=== PATIENT | male | born 1980 | race American Indian/Alaskan Native ===

== ENCOUNTER 2019-09-03 07:14 | Observation (INO) | payer SELFPAY ==
--- NOTE | 2019-09-03 08:16 | XRay Report ---
CHEST 2 VIEWS INDICATION / CLINICAL INFORMATION: MYCHAL ESRD. COMPARISON: None available. FINDINGS: SUPPORT DEVICES: None. HEART / MEDIASTINUM: No significant abnormality. LUNGS / PLEURA: No significant pulmonary or pleural abnormality. .No pneumothorax. ADDITIONAL FINDINGS: No significant additional findings. IMPRESSION: 1. No acute findings. Signer Name: Cruzito Hills MD Signed: 09/03/2019 8:12 AM Workstation Name: [id number]
--- NOTE | 2019-09-03 08:30 | Emergency Department Report ---
ED General Adult HPI - General Chief complaint: Medical Clearance Stated complaint: DIALYSIS Time Seen by Provider: 09/03/19 07:38 Source: patient Mode of arrival: Ambulatory Limitations: No Limitations - History of Present Illness Initial comments: This is a 39 y/o ESRD pt on dialysis with a left arm fistula. He states that he moved here on . He has been dialyzed through the ER at [facility] since then. He states his last dialysis was on Thursday. Thursday he went to [facility] and had a "disagreement" and was not dialyzed. She is here today requesting dialysis. He states that his insurance was "not accepted". He is applied for [facility] [place] Medicaid which is pending. Due to this he has no outpatient dialysis scheduled. He states he does not have a command center officer either. He has been seeing the on-call physician at [facility]. Patient states he feels like he is filling up with fluid. However we does not report any breathing difficulty. He states that his legs never gets swollen. He states he has a history of congestive heart failure and hypertension but no diabetes. He denies fever or chills. -: Gradual Associated Symptoms: denies other symptoms - Related Data Allergies Allergy/AdvReac Type Severity Reaction Status Date / Time shellfish derived Allergy Unknown Verified 09/03/19 07:40 ED Review of Systems ROS: Stated complaint: DIALYSIS Other details as noted in HPI Constitutional: other (feels like he is "filling up with fluid".). denies: chills, fever Eyes: denies: eye pain, eye discharge, vision change ENT: denies: ear pain, throat pain Respiratory: denies: cough, shortness of breath, wheezing Cardiovascular: denies: chest pain, palpitations Endocrine: no symptoms reported Gastrointestinal: denies: abdominal pain, nausea, diarrhea Genitourinary: denies: urgency, dysuria Musculoskeletal: denies: back pain, joint swelling, arthralgia Skin: denies: rash, lesions Neurological: denies: headache, weakness, paresthesias Psychiatric: denies: anxiety, depression Hematological/Lymphatic: denies: easy bleeding, easy bruising ED Past Medical Hx - Past Medical History Previous Medical History?: Yes Hx Hypertension: Yes Hx Renal Disease: Yes - Surgical History Past Surgical History?: Yes Additional Surgical History: AV graft - Social History Smoking Status: Never Smoker ED Physical Exam - General Limitations: No Limitations General appearance: alert, in no apparent distress - Head Head exam: Present: atraumatic, normocephalic - Eye Eye exam: Present: normal appearance. Absent: scleral icterus - ENT ENT exam: Present: mucous membranes moist - Neck Neck exam: Present: normal inspection - Respiratory Respiratory exam: Present: normal lung sounds bilaterally. Absent: respiratory distress - Cardiovascular Cardiovascular Exam: Present: regular rate, normal rhythm. Absent: systolic murmur, diastolic murmur, rubs, gallop - GI/Abdominal GI/Abdominal exam: Present: soft, normal bowel sounds. Absent: distended, tenderness, guarding, rebound - Rectal Rectal exam: Present: deferred - Extremities Exam Extremities exam: Present: other (fistula with good thrill noted left arm) - Back Exam Back exam: Present: normal inspection - Neurological Exam Neurological exam: Present: alert, oriented X3, CN II-XII intact. Absent: motor sensory deficit - Psychiatric Psychiatric exam: Present: normal affect, normal mood - Skin Skin exam: Present: warm, dry, intact, normal color. Absent: rash ED Course Vital Signs 09/03/19 09/03/19 09/03/19 07:34 07:37 08:10 Temperature 98.2 F 98.6 F Pulse Rate 84 86 88 Respiratory 18 18 12 Rate Blood Pressure 126/75 126/75 O2 Sat by Pulse 98 98 Oximetry 09/03/19 09/03/19 09/03/19 08:14 08:15 08:30 Temperature Pulse Rate 80 80 Respiratory 18 11 L 12 Rate Blood Pressure 135/79 135/79 O2 Sat by Pulse 99 100 99 Oximetry 09/03/19 09/03/19 08:45 09:00 Temperature Pulse Rate 80 92 H Respiratory 12 12 Rate Blood Pressure 127/74 127/74 O2 Sat by Pulse 100 100 Oximetry - Reevaluation(s) Reevaluation #1: Discussed the case with Dr. Boland, the command center officer. He stated that he was familiar with this patient. He will enter dialysis orders. 09/03/19 09:54 ED Medical Decision Making - Lab Data Result diagrams: 09/03/19 08:11 09/03/19 08:11 Laboratory Results - last 24 hr 01/25/20 01/25/20 01/25/20 08:11 08:11 08:11 WBC 3.2 L RBC 2.94 L Hgb 8.7 L Hct 26.1 L MCV 89 MCH 30 MCHC 33 RDW 15.9 H Plt Count 154 Lymph % (Auto) 38.5 H [place] % (Auto) 8.2 H Eos % (Auto) 3.0 Baso % (Auto) 1.2 Lymph # 1.2 [place] # 0.3 Eos # 0.1 Baso # 0.0 Seg Neutrophils % 49.1 Seg Neutrophils # 1.6 L PT 13.6 INR 1.03 APTT 31.5 Sodium 142 Potassium 4.3 Chloride 100.4 Carbon Dioxide 17 L Anion Gap 29 BUN 86 H Creatinine 17.1 H Estimated GFR 3 BUN/Creatinine Ratio 5 Glucose 116 H Calcium 7.8 L Phosphorus 6.70 H Total Bilirubin 0.30 Direct Bilirubin < 0.2 Indirect Bilirubin 0.1 AST 13 ALT 8 Alkaline Phosphatase 83 NT-Pro-B Natriuret Pep 833.8 H Total Protein 7.5 Albumin 4.4 Albumin/Globulin Ratio 1.4 - Radiology Data Radiology results: report reviewed (chest x-ray no acute process) Critical care attestation.: If time is entered above; I have spent that time in minutes in the direct care of this critically ill patient, excluding procedure time. ED Disposition Clinical Impression: End stage renal disease on dialysis Cardiomyopathy Qualifiers: Cardiomyopathy type: unspecified Qualified Code(s): I42.9 - Cardiomyopathy, unspecified Disposition: OP ADMIT IP TO THIS HOSP Is pt being admited?: Yes Does the pt Need Aspirin: Yes Condition: Stable Time of Disposition: 10:02
[2019-09-03 08:42] LABS: Basophils % (Auto) 1.2 % (0.0-1.8); Eosinophils # (Auto) 0.1 K/mm3 (0.0-0.4); Hematocrit 26.1 % (35.5-45.6); Hemoglobin 8.7 gm/dl (11.8-15.2); Lymphocytes # (Auto) 1.2 K/mm3 (1.2-5.4); Lymphocytes % (Auto) 38.5 % (13.4-35.0); Mean Corpuscular HGB Conc 33 % (32-34); Mean Corpuscular Volume 89 fl (84-94); Monocytes # (Auto) 0.3 K/mm3 (0.0-0.8); Monocytes % (Auto) 8.2 % (0.0-7.3); Platelet Count 154 K/mm3 (140-440); Red Blood Count 2.94 M/mm3 (3.65-5.03); Red Cell Distribution Width 15.9 % (13.2-15.2)
[2019-09-03 08:47] LABS: INR 1.03 (0.87-1.13)
[2019-09-03 08:48] LABS: Partial Thromboplastin Time 31.5 Sec. (24.2-36.6)
[2019-09-03 09:16] LABS: Alanine Aminotransferase 8 units/L (7-56); Albumin 4.4 g/dL (3.9-5); BUN/Creatinine Ratio 5; Blood Urea Nitrogen 86 mg/dL (9-20); Calcium 7.8 mg/dL (8.4-10.2); Hemolysis Index 6
[2019-09-03 09:19] LABS: Bilirubin,Direct < 0.2 mg/dL (0-0.2)
[2019-09-03] MEDS ORDERED: ASPIRIN 325 MG TAB PO ONE (10:02)
[2019-09-03] MEDS ORDERED: SODIUM CHLORIDE 0.9% 100 ML IV PRN (12:23)
--- NOTE | 2019-09-03 12:30 | Consultation ---
History of Present Illness - Reason for Consult Consult date: 09/03/19 end stage renal disease - History of Present Illness This is a 39 y/o M with PMH of ESRD on HD and HTN who presented to [facility] ED with c/o shortness of breath needing HD. Pt states he moved to [place], doesn't have outpatient HD placement yet, states awaiting finalization of insurance coverage. Pt states he has been going to different hospitals for HD. Last HD treatment was 08/29/19 at [facility], had about 3.5 liter removed. Pt states he went to [facility] on Thursday, but had a long wait time and never received HD. We joel andrade consulted to evaluate this pt who has ESRD. Pt seen in ED, no acute distress, family at bedside Past History Past Medical History: dialysis, ESRD, hypertension Medications and Allergies Allergies Allergy/AdvReac Type Severity Reaction Status Date / Time shellfish derived Allergy Unknown Verified 09/03/19 07:40 Active Meds: Active Medications Sodium Chloride (Nacl 0.9%) 100 mls @ 999 mls/hr IV LUCIUS PRN PRN Reason: Hypotension Review of Systems Constitutional: fatigue, no fever Cardiovascular: shortness of breath, dyspnea on exertion, no chest pain Respiratory: shortness of breath, dyspnea on exertion Gastrointestinal: no abdominal pain, no nausea, no vomiting, no diarrhea, no constipation, no hematemesis, no melena Neurological: no syncope Exam - Vital Signs Vital signs: Vital Signs Temp Pulse Resp BP Pulse Ox 98.2 F 84 18 126/75 98 09/03/19 07:34 09/03/19 07:34 09/03/19 07:34 09/03/19 07:34 09/03/19 07:34 - General Appearance General appearance: well-developed EENT: ATNC Neck: Present: neck supple Respiratory: Decreased Breath Sounds Heart: regular, S1S2, other (ACCESS: Left AVF + thrill and bruit noted) Gastrointestinal: Present: normoactive bowel sounds. Absent: tenderness Integumentary: warm and dry Neurologic: alert and oriented x3 Musculoskeletal: Present: other (trace edema to BLE) Psychiatric: cooperative Results - Lab Results 09/03/19 08:11 09/03/19 08:11 Most recent lab results Calcium 7.8 mg/dL (8.4-10.2) L 09/03/19 08:11 Phosphorus 6.70 mg/dL (2.5-4.5) H 09/03/19 08:11 Assessment and Plan ESRD on HD HTN Shortness of breath Anemia likely due to ESRD High Anion Gap Metabolic Acidosis Plan: - HD today for UF and clearance - Ok for pt to be discharged home from nephrology standpoint after HD if remains medically stable - Pt states he's been on HD for about 1 yr, Left AVF + thrill and bruit - Renally dose medications - Epogen dosing for anemia management - Pt doesn't have outpatient HD placement yet, awaiting insurance coverage, states he goes to the ED for dialysis - Renal plan d/w Dr Boland
--- NOTE | 2019-09-03 12:38 | History and Physical Report ---
History of Present Illness Date of examination: 09/03/19 Date of admission: 09/03/19 10:24 History of present illness: This is a 39 y/o ESRD pt on dialysis with a left arm fistula. He states that he moved here on . He has been dialyzed through the ER at [facility] since then. He states his last dialysis was on Thursday. Thursday he went to [facility] and had a "disagreement" and was not dialyzed. She is here today requesting dialysis. He states that his insurance was "not accepted". He is applied for [facility] Medicaid which is pending. Due to this he has no outpatient dialysis scheduled. 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 He has been seeing the on-call physician at [facility]. Patient states he feels like he is filling up with fluid. However we does not report any breathing difficulty. He states that his legs never gets swollen. He states he has a history of congestive heart failure and hypertension but no diabetes. He denies fever or chills. Past History Past Medical History: dialysis, ESRD, hypertension Medications and Allergies Allergies Allergy/AdvReac Type Severity Reaction Status Date / Time shellfish derived Allergy Unknown Verified 09/03/19 07:40 Active Meds: Active Medications Epoetin Bernardo (Procrit) 10,000 unit SUB-Q LUCIUS LEONEL Sodium Chloride (Nacl 0.9%) 100 mls @ 999 mls/hr IV LUCIUS PRN PRN Reason: Hypotension Exam - Constitutional Vitals: Temp Pulse Resp BP Pulse Ox 98.6 F 92 H 12 127/74 100 09/03/19 07:37 09/03/19 09:00 09/03/19 09:00 09/03/19 09:00 09/03/19 09:00 Results - Labs CBC & Chem 7: 09/03/19 08:11 09/03/19 08:11 Labs: Abnormal lab results 09/03/19 09/03/19 Range/Units 08:11 08:11 WBC 3.2 L (4.5-11.0) K/mm3 RBC 2.94 L (3.65-5.03) M/mm3 Hgb 8.7 L (11.8-15.2) gm/dl Hct 26.1 L (35.5-45.6) % RDW 15.9 H (13.2-15.2) % Lymph % (Auto) 38.5 H (13.4-35.0) % [place] % (Auto) 8.2 H (0.0-7.3) % Seg Neutrophils # 1.6 L (1.8-7.7) K/mm3 Carbon Dioxide 17 L (22-30) mmol/L BUN 86 H (9-20) mg/dL Creatinine 17.1 H (0.8-1.5) mg/dL Glucose 116 H (75-100) mg/dL Calcium 7.8 L (8.4-10.2) mg/dL Phosphorus 6.70 H (2.5-4.5) mg/dL NT-Pro-B Natriuret Pep 833.8 H (0-450) pg/mL
[2019-09-03] MEDS ORDERED: EPOETIN ALFA 10,000 UNIT/1 ML INJ SUB-Q SCH (13:00)
[2019-09-03 14:51] LABS: Hepatitis C Virus Antibody Non-Reactive (NonReactive)
[2019-09-03 14:52] LABS: Hepatitis B Surface Antigen Non-Reactive (Negative)
[2019-09-03] MEDS ORDERED: SODIUM CHLORIDE*PRIMING MACHINE ONLY FOR DIALYSIS MC ONE (23:32)
[2019-09-04 01:44] VITALS: BP 156/80
== END 2019-09-04 00:16 | disposition home or self-care (01) ==
LOC: ED 07:14 → 3A 10:24
PROVIDERS: ADMIT Internal Medicine; ATTEND Internal Medicine
DX: I12.0 Hypertensive chronic kidney disease with stage 5 chronic kidney disease or end stage renal disease (principal); N18.6 End stage renal disease; I42.9 Cardiomyopathy, unspecified; Z99.2 Dependence on renal dialysis
CPT/HCPCS: 36415; 71046; 80048; 80074; 80076; 83880; 84100; 85025; 85610; 85730; 93005; 93010; 96372; 99284; G0378; J0885; J7030